=== PATIENT | male | born 1995 | race Caucasian/White ===

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

== ENCOUNTER 2019-08-08 16:53 | Emergency (ER) | payer BC, OTHER ==
[2019-08-08 17:01] VITALS: TEMP 97.8
--- NOTE | 2019-08-08 17:55 | XR ---
EXAMINATION TYPE: XR femur LT DATE OF EXAM: 08/08/2019 COMPARISON: None HISTORY: Fall, pain TECHNIQUE: 2 view left femur FINDINGS: Femoral head articulates with the acetabulum. No acute fracture or dislocation is evident. Knee appears unremarkable on these images. Soft tissues are grossly normal. IMPRESSION: 1. No acute osseous abnormality left femur
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
--- NOTE | 2019-08-08 18:41 | XR ---
EXAMINATION TYPE: XR knee complete LT DATE OF EXAM: 08/08/2019 COMPARISON: Left femur HISTORY: Fall, pain TECHNIQUE: Three-view left knee FINDINGS: Joint spaces preserved. No acute fractures are evident. Minimal joint effusion is not exclu ded. IMPRESSION: 1. Minimal joint effusion is not excluded. 2. No acute osseous abnormality is radiographically apparent
[2019-08-08 19:25] VITALS: BP 126/82; PULSE 74; RESP 18
== END 2019-08-08 19:10 | disposition home or self-care (01) ==
LOC: EC 16:53
DX: S83.412A Sprain of medial collateral ligament of left knee, initial encounter (principal); F10.129 Alcohol abuse with intoxication, unspecified; F17.200 Nicotine dependence, unspecified, uncomplicated; X50.1XXA Overexertion from prolonged static or awkward postures, initial encounter; Y93.89 Activity, other specified; Y92.89 Other specified places as the place of occurrence of the external cause
CPT/HCPCS: 73552; 73562; 99283; L1830

== ENCOUNTER → 2023-01-22 | Outpatient (CLI) | payer BC ==
--- NOTE | 2023-01-30 12:58 | EST ---
HOLTER MONITOR The patient was monitored for 24 hours. CLINICAL INFORMATION: Baseline rhythm is sinus mechanism with normal conduction. The average rate 48 beats per minute, minimum 34, maximum 105 beats per minute. Ventricular ectopic activity was present in the form of rare single PVCs. Supraventricular ectopic activity was present in the form of rare single PACs. No symptoms were reported. CONCLUSION: 1. Sinus bradycardia, baseline rhythm. 2. Rare ventricular ectopic activity. 3. Rare supraventricular ectopic activity. 4. No symptoms were reported. MMODL / IJN: [id number] / [facility]
== END | disposition home or self-care (01) ==
LOC: RADECHMAIN 07:37
PROVIDERS: ATTEND Family Medicine
DX: I49.3 Ventricular premature depolarization (principal)
CPT/HCPCS: 93225; 93226

== ENCOUNTER → 2023-02-12 | Outpatient (CLI) | payer BC | END | disposition home or self-care (01) | LOC: RADMRIMAIN 09:10 | PROVIDERS: ATTEND Family Medicine | DX: Z53.9 Procedure and treatment not carried out, unspecified reason (principal) ==